=== PATIENT | male | born 1990 | race Caucasian/White ===

== ENCOUNTER 2017-12-05 20:36 | Emergency (ER) | payer OTHER ==
[2017-12-05] MEDS: OXYCODONE/APAP 5MG/325MG(BULK FOR ED) 1 TABLET PO (23:55)
[2017-12-05] MEDS: PERCOCET 5MG/325MG TAB PO (23:55)
== END 2017-12-06 00:10 | disposition home or self-care (01) ==
LOC: M ED 12-06 00:10
DX: M79.662 Pain in left lower leg (principal); X58.XXXA Exposure to other specified factors, initial encounter; Y92.9 Unspecified place or not applicable; Y93.02 Activity, running; Y99.1 Military activity; Z87.891 Personal history of nicotine dependence
CPT/HCPCS: 73590